=== PATIENT | female | born 1960 | race Caucasian/White ===

== ENCOUNTER 2017-01-13 05:54 | Day surgery (SDC) | payer OTHER ==
[2017-01-04 13:15] VITALS: BMI 37.2
[2017-01-13] MEDS ORDERED: PROPOFOL 20 ML ONE ×2 (07:20)
[2017-01-13] MEDS ORDERED: MIDAZOLAM HCL 2 MG/2 ML SINGLE DOSE VIAL ONE (07:20)
[2017-01-13] MEDS ORDERED: LIDOCAINE HCL/PF 2% SDV 5ML VIAL ONE (07:20)
[2017-01-13] MEDS ORDERED: BUPIVACAINE HCL/EPINEPHRINE/PF 30 ML VIAL IJ ONE (07:22)
[2017-01-13] MEDS ORDERED: SUCCINYLCHOLINE CHLORIDE 200 MG/10 ML VIAL ONE ×2 (07:24→07:25)
[2017-01-13] MEDS ORDERED: BUPIVACAINE 0.25% /EPI 1:200,000 10 ML VIAL INF ONE (07:55)
--- NOTE | 2017-01-13 08:31 | OP ---
Operative Note - Note: Operative Date: 01/13/17 Pre-Operative Diagnosis: right CTS Operation: Right CTR Post-Operative Diagnosis: Same as Pre-op Surgeon: Niko Butt Anesthesia: General Operative Report Dictated: Yes
--- NOTE | 2017-01-13 08:32 | DS ---
Physical Examination Vital Signs: Vital Signs Temperature 99.6 F 01/13/17 06:12 Pulse Rate 60 01/13/17 06:12 Respiratory Rate 16 01/13/17 06:12 Blood Pressure 133/88 01/13/17 06:12 O2 Sat by Pulse Oximetry (%) 97 01/13/17 06:16 Discharge Summary Reason For Visit: RIGHT CARPAL TUNNEL SYNDROME Condition: Good - Instructions Diet, Activity, Other Instructions: Keep hand elevated as much as possible for 5 days. MOve fingers as tolerated. Keep the dressing dry. Call for appointment in 10-14 days for suture removal Disposition: HOME - Home Medications Comprehensive Discharge Medication List: Ambulatory Orders Citalopram Hydrobromide [Citalopram HBr] 10 mg PO HS 01/04/17 Ranitidine HCl [Zantac 75] 75 mg PO HS PRN 01/04/17
[2017-01-13 09:49] VITALS: PULSE 56; TEMP 97.7
[2017-01-13 09:56] VITALS: BP 107/48
[2017-01-13] MEDS ORDERED: ACETAMINOPHEN 325 MG TABLET (FP) PO PRN (11:43)
[2017-01-13] MEDS ORDERED: ONDANSETRON 4 MG/2 ML VIAL IVPUSH PRN (11:44)
[2017-01-13] MEDS ORDERED: oxyCODONE HCL 5 MG TABLET PO PRN (11:44)
[2017-01-13] MEDS ORDERED: LACTATED RINGERS SOLUTION 1,000 ML IV SCH (11:45)
== END 2017-01-13 09:10 | disposition home or self-care (01) ==
LOC: FASU 05:54
PROVIDERS: ATTEND Orthopaedic Surgery
PROC: 01N50ZZ Release Median Nerve, Open Approach (ICD-10-PCS; principal; 2017-01-13 07:30)
DX: G56.01 Carpal tunnel syndrome, right upper limb (principal)

== ENCOUNTER 2017-08-04 07:25 | Day surgery (SDC) | payer OTHER ==
[2017-07-27 11:59] VITALS: BMI 38.9
[2017-08-04] MEDS ORDERED: MIDAZOLAM HCL 2 MG/2 ML SINGLE DOSE VIAL ONE (08:41)
[2017-08-04] MEDS ORDERED: ROPIVACAINE HCL 0.5% 30ML VIAL ONE (08:41)
[2017-08-04] MEDS ORDERED: DEXAMETHASONE SOD PHOSPHATE/PF 10 MG/ML SDV ONE (08:41)
[2017-08-04] MEDS ORDERED: BUPIVACAINE HCL/EPINEPHRINE/PF 30 ML VIAL IJ ONE (09:12)
[2017-08-04] MEDS ORDERED: PROPOFOL 20 ML ONE ×3 (09:58)
--- NOTE | 2017-08-04 10:04 | HP ---
History & Physical Update - History History: No Change - Physical Physical: No Change - Assessment Assessment: No Change - Plan Plan: No Change
[2017-08-04] MEDS ORDERED: ceFAZolin SODIUM 1 GM VIAL ONE (10:08)
[2017-08-04] MEDS ORDERED: oxyCODONE HCL 5 MG TABLET PO PRN (11:03)
[2017-08-04] MEDS ORDERED: oxyCODONE HCL 10 MG SUSTAINED ACTING TABLET PO ONE (11:03)
--- NOTE | 2017-08-04 11:08 | OP ---
Operative Note - Note: Operative Date: 08/04/17 Pre-Operative Diagnosis: Left shoulder OA, Degenerative Rotator cuff tear, labral tear, synovitis Operation: LSA, synovectomy, chondroplasty, debridement of labral tear, rotator cuff repair with bioinductive patch. Post-Operative Diagnosis: Same as Pre-op Surgeon: Niko Butt Anesthesia: General Operative Report Dictated: Yes
--- NOTE | 2017-08-04 11:09 | DS ---
Physical Examination Vital Signs: Vital Signs Temperature 98.7 F 08/04/17 08:00 Pulse Rate 62 08/04/17 08:00 Respiratory Rate 16 08/04/17 08:00 Blood Pressure 116/61 08/04/17 08:00 O2 Sat by Pulse Oximetry (%) 96 08/04/17 08:00 Discharge Summary Reason For Visit: OSTEOARTHRITIS LEFT SHOULDER, RTC TEAR Condition: Good - Instructions Diet, Activity, Other Instructions: Post Operative Instructions: Shoulder Arthroscopy Dr Niko Butt 1. Pain following a Shoulder Arthroscopy is variable and can be significant. Some patients will have more pain than others. You have been provided with a prescription for medication that contains a narcotic. You are not allowed to drive while on this medication. Feel free to take medications such as Ibuprofen or Naprosyn in addition to the pain medicine if you do not have any problems with the NSAID class of medications. 2. Apply ice to the shoulder for 15 minutes every hour. You may continue this for as many days as necessary. 3. You may find sleeping on an incline (reclining chair) to be more comfortable for the first few days. 4. You may remove your sling a few times a day to gently move the arm. 5. Stay in the sling most of the time. You can remove the sling a few times a day to gently move the arm. 6. You may remove the bandages in 48 hours. You may shower at that point. 7. Place band-aids on the sutures after your shower.Do not put any creams or lotions on the incision until after the sutures are removed. 8. Please call the office to schedule a visit to have your sutures removed. 9. If for any reason you believe you may have an infection or are concerned, please feel free to call me. I can be reached through our office number 24 hours a day. 10. Please call our office with any questions; we will review the surgical findings during your post-operative visit. Disposition: HOME - Home Medications Comprehensive Discharge Medication List: Ambulatory Orders Ranitidine HCl [Zantac 75] 75 mg PO HS PRN 01/04/17 Citalopram Hydrobromide [Celexa -] 20 mg PO HS 07/27/17
[2017-08-04 11:34] VITALS: TEMP 98
[2017-08-04] MEDS ORDERED: oxyCODONE HCL 10 MG SUSTAINED ACTING TABLET ONE (11:38)
--- NOTE | 2017-08-04 13:23 | SURG ---
Surgery Drywall Foreman Note Drywall Foreman: Precious Negro PA-C Date of Service: 08/04/17 Diagnosis: Left shoulder OA, Degenerative Rotator cuff tear, labral tear, synovitis Procedure: LSA, synovectomy, chondroplasty, debridement of labral tear, rotator cuff repair with bioinductive patch I was present for the entirety of the operative procedure. For further detail, please refer to operative report. Visit type - Case Type Case Type: Scheduled Admission - Emergency Emergency Visit: No - New patient This patient is new to me today: Yes Date on this admission: 08/04/17 - Critical Care Critical Care patient: No
[2017-08-04 13:46] VITALS: BP 120/70; PULSE 61
== END 2017-08-04 12:40 | disposition home or self-care (01) ==
LOC: FASU 07:25
PROVIDERS: ATTEND Orthopaedic Surgery
PROC: 0RNK4ZZ Release Left Shoulder Joint, Percutaneous Endoscopic Approach (ICD-10-PCS; 2017-08-04)
PROC: 0RBK4ZZ Excision of Left Shoulder Joint, Percutaneous Endoscopic Approach (ICD-10-PCS; 2017-08-04)
PROC: 0RU Upper Joints, Supplement (ICD-10-PCS; 2017-08-04)
PROC: 0LB24ZZ Excision of Left Shoulder Tendon, Percutaneous Endoscopic Approach (ICD-10-PCS; principal; 2017-08-04 10:24)
DX: M19.012 Primary osteoarthritis, left shoulder (principal); M24.112 Other articular cartilage disorders, left shoulder; M65.812 Other synovitis and tenosynovitis, left shoulder; M75.112 Incomplete rotator cuff tear or rupture of left shoulder, not specified as traumatic